=== PATIENT | male | born 1950 | race Caucasian/White ===

== ENCOUNTER 2019-09-15 20:13 | Inpatient (IN) | payer MEDICARE, SELFPAY ==
[2019-09-15] VITALS (7 sets, daily range): BP systolic 93–139; BP diastolic 43–91; PULSE 64–117; RESP 16–24; O2SAT 90–99
--- NOTE | ~2019-09-15 | XR_ITS ---
EXAMINATION: XR chest ET placement DATE: 09/15/2019 20:59 INDICATION: Endotracheal tube advancement TECHNIQUE: frontal view of the chest was obtained. COMPARISON: Chest radiograph dated 09/15/2019 at 8:37 PM FINDINGS: Endotracheal tube tip 3.0 cm above the cno. Nasogastric tube tip in the body of the stomach. Calcified nodule in the right midlung zone consistent with old granulomatous disease. Fine peripheral reticular pattern most prominent at the right apex consistent with ascites pattern interstitial lung disease superimposed over emphysema which is better appreciated on CT dated 02/18/2019. No new airspa ce opacities, pulmonary edema, pleural effusion or pneumothorax.. The cardiomediastinal silhouette is normal. IMPRESSION: 1. Emphysema and mild NSIP pattern chronic interstitial lung disease. Reviewed, dictated and finalized at location A.
--- NOTE | ~2019-09-15 | XR_ITS ---
EXAMINATION: XR fluoroscopy <1hr DATE: 09/20/2019 12:26 INDICATION: Heart pump placement. TECHNIQUE: 38 intraoperative fluoroscopic views of the chest were obtained. I was not present. Fluoro scopy exposure time was 17 seconds. COMPARISON: Chest CT 02/18/2019 FINDINGS: The Impella device tip is in the left ventricle. IMPRESSION: 1. Impella device tip in the left ventricle. Reviewed, dictated and finalized at location A.
--- NOTE | ~2019-09-15 | XR_ITS ---
EXAMINATION: XR chest ET placement DATE: 09/15/2019 20:45 INDICATION: Endotracheal tube advancement. TECHNIQUE: frontal view of the chest was obtained. COMPARISON: Chest radiograph dated 09/15/2019 at 8:32 PM FINDINGS: Endotracheal tube tip 6.5 cm above the con. Nasogastric tube tip in the body of the stomach. Calci fied nodules in the right midlung zone consistent with old granulomatous disease. Fine peripheral ret icular pattern in the right upper lung zone. No other airspace opacities, pleural effusion or pneumot horax. The cardiomediastinal silhouette is normal. IMPRESSION: 1. The tracheal tube tip 6.5 cm above the con. Consider advancement by 4 cm. 2. Emphysema and NSIP pattern chronic interstitial lung disease better appreciated on prior CT. Reviewed, dictated and finalized at location A. IMPRESSION: 1. The tracheal tube tip 6.5 cm above the con. Consider advancement by 4 cm. 2. Emphysema and NSIP pattern chronic interstitial lung disease better apprecia avel on prior CT.
--- NOTE | ~2019-09-15 | XR_ITS ---
EXAMINATION: XR chest ET placement DATE: 09/15/2019 20:44 INDICATION: Cardiac arrest. Endotracheal tube placement. TECHNIQUE: frontal view of the chest was obtained. COMPARISON: Chest radiograph and CT dated 02/18/2019 FINDINGS: Endotracheal tube tip at the thoracic inlet. Chronic fine interstitial pattern at the periphery of th e right apex consistent with an XIP pattern chronic interstitial lung disease better appreciated on p rior CT. There is also emphysema which is better appreciated on prior CT. Portions of the lung bases and lateral right lung are excluded from the [id number]. Cardiomediastinal silhouette is normal. IMPRESSION: 1. Endotracheal tube tip at the thoracic inlet but per discussion with Dr. Trevizo has been subsequen tly advanced. 2. Emphysema and NSIP pattern chronic interstitial lung disease. Reviewed, dictated and finalized at location A. IMPRESSION: 1. Endotracheal tube tip at the thoracic inlet but per discussion with Dr. Cruz acosta has been subsequently advanced. 2. Emphysema and NSIP pattern chronic interstitial lung disease.
--- NOTE | ~2019-09-15 | CT_ITS ---
EXAMINATION: CT brain wo con DATE: 09/15/2019 21:21 INDICATION: Altered mental status. TECHNIQUE: Computed tomography (CT) of the head was performed without intravenous contrast. Sagittal and coronal reconstructions were performed. The mA was adjusted according to patient size. Iterative reconstruction technique was employed. The dose-length product was 605.33 mGy-cm. COMPARISON: head CT dated 05/19/2013 FINDINGS: Small old infarct in the right cerebellar hemisphere. Small old left cerebellar infarct which is new since the prior study. No acute intracranial hemorrhage, acute infarction or abnormal extra axial flu id collection. There is mild to moderate scattered white matter hypoattenuation consistent with chron ic small vessel ischemic disease. Symmetric prominence of the sulci consistent with mild age-appropri ate diffuse cerebral volume loss. Ventricles are normal and symmetric. No mass/mass effect. Changes o f right intraocular lens replacement. Mild mucosal thickening at the bilateral frontal, ethmoid and m axillary sinuses. The orbits and mastoid air cells are normal. Intracranial calcified cerebral athero sclerosis is noted. IMPRESSION: 1. No acute intracranial process. 2. 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 3. Age-related changes including mild diffuse volume loss and mild to moderate scattered white matter hypoattenuation consistent with chronic small vessel ischemic disease. Reviewed, dictated and finalized at location A. IMPRESSION: 1. No acute intracranial process. 2. 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 3. Age-related changes including mild diffuse volume loss and mild to moderate scattered white matter hypoattenuation consistent with chronic small vessel isc hemic disease.
--- NOTE | 2019-09-15 20:18 | ECG_ITS ---
Measurements Intervals [place] Rate: 116 P: MT: 0 QRS: 86 QRSD: 198 T: 0 QT: 448 QTc: 623 Interpretive Statements ATRIAL FIBRILLATION WITH RAPID VENTRICULAR RESPONSE RIGHT BUNDLE BRANCH BLOCK EXTENSIVE ANTERIOR INFARCT, AGE INDETERMINATE BASELINE WANDER- I, III ABNORMAL ECG Electronically Signed On 09-16-2019 7:25:37 CDT by Marshall Hill D.O.
--- NOTE | 2019-09-15 20:21 | ED.CPR ---
HPI - CPR General Chief Complaint: Cardiac Arrest/CPR Stated Complaint: cardiac arrest Time Seen by Provider: 09/15/19 20:17 Source: RN notes reviewed History of Present Illness HPI narrative: Patient presents emergency department from home in cardiac arrest. History is per EMS the patient been complaining of left shoulder and arm pain throughout the day today got up to mother grass have been found sitting in his chair unresponsive to daughter when she was at home that time EMS was called and EMS initially arrived the patient was unresponsive with agonal respirations but did have a pulse and lost pulse and transport he initially had 2 episodes of V. fib that were shocked patient was given amiodarone and 4 rounds of epinephrine with PEA but no return of pulse. Patient was transported the ER for further evaluation the patient does have a known history of diabetes and cardiac history Related Data Home Medications Medication Instructions Recorded Confirmed atorvastatin 40 mg PO DAILY 02/18/19 02/18/19 benazepril 40 mg PO DAILY 02/18/19 02/18/19 buspirone 10 mg PO BID 02/18/19 02/18/19 carvedilol 25 mg PO BID 02/18/19 02/18/19 citalopram 40 mg DAILY 02/18/19 02/19/19 metformin 500 mg PO DAILY 02/18/19 02/18/19 acetaminophen 325 mg capsule 325 mg PO Q6H PRN 03/07/19 alprazolam 0.5 mg tablet 0.5 mg PO BID 03/07/19 atorvastatin 40 mg tablet 40 mg PO DAILY 03/07/19 benazepril 40 mg tablet 40 mg PO DAILY 03/07/19 buspirone 10 mg tablet 10 mg PO BID 03/07/19 carvedilol 25 mg tablet 25 mg PO Q12H 03/07/19 citalopram 40 mg tablet 40 mg PO DAILY tablet 03/07/19 metformin 500 mg tablet 500 mg PO BID 03/07/19 prednisone 10 mg tablet 10 mg PO DAILY 03/07/19 ropinirole 1 mg tablet 1 mg PO DAILY tablet 03/07/19 Allergies Allergy/AdvReac Type Severity Reaction Status Date / Time iodine Allergy Unknown none Verified 05/27/19 09:51 Penicillins Allergy Unknown rash Verified 05/27/19 09:51 shellfish derived Allergy Unknown RASH Unverified 05/27/19 09:51 Review of Systems Review of Systems: ROS unobtainable: Yes unobtainable due to endotracheal tube and unobtainable due to mental status PMFSH Past Medical History Medical History Asthma Atrial fibrillation He has not had any episodes since he was in his 30s Basal cell carcinoma Resected from face 2014 Cataract Maturing left cataract Combined systolic and diastolic cardiac dysfunction Last echocardiogram March 2013 with left atrial enlargement, mild left ventricular enlargement, mild global hypokinesis of left ventricle with EF of 45%, diastolic dysfunction, trace tricuspid and mitral regurgitation COPD (chronic obstructive pulmonary disease) Depression Prior suicide attempt 2013 Diverticulosis Colonoscopy March 2018 Dr. Srivastava Essential hypertension GERD with apnea Herniated lumbar intervertebral disc Internal hemorrhoids Obstructive sleep apnea Recommended CPAP of 6 however patient is not adherence to CPAP therapy Peripheral neuropathy PTSD (post-traumatic stress disorder) Due to service in [place] Superficial vein thrombosis TIA (transient ischemic attack) March 2013 without residual deficits Type 2 diabetes mellitus Surgical History Surgical History H/O inguinal hernia repair 1979 History of cataract surgery Right cataract Hx of cardiac catheterization 2006 not requiring intervention Hx of tonsillectomy Family History Family History Mother Family history of osteoporosis Family history of dementia, Onset Age: 86 Father Family history of chronic obstructive pulmonary disease Family history of emphysema, Onset Age: 59 Sibling Family history of chronic obstructive pulmonary disease, Onset Age: 84 Sibling Cerebrovascular accident Father Asthma Sibling
[2019-09-15 20:37] LABS: Basophils Absolute Auto 0.2 K/mm3 (0.0-0.1); Basophils Percent Auto 0.8 % (0.2-1.2); Eosinophils Absolute Auto 0.2 K/mm3 (0-0.3); Eosinophils Percent Auto 0.9 % (0-4.4); Immature Granulocyte Absolute 1.12 K/mm3 (0.00-0.031); Immature Granulocyte Percent A 6.3 % (0-0.5); Lymphocytes Percent Auto 25.4 % (18.3-44.2); Mean Corpuscular Hemoglobin 31.4 pg (26-34); Mean Platelet Volume 10.2 fl (7.4-10.4); Monocytes Absolute Auto 0.9 K/mm3 (0.1-0.6); Neutrophils Absolute Auto 10.9 K/mm3 (1.3-6.7); Neutrophils Percent Auto 61.6 % (45.5-73.1); Nucleated Red Blood Cells Perc 0.2 % (0.0-0.2); Platelet Count Result 186 k/mm3 (150-375); Red Cell Distribution Width 12.7 % (11.5-14.5); White Blood Count 17.7 K/mm3 (4.5-10.0)
--- NOTE | 2019-09-15 20:41 | ECG_ITS ---
Measurements Intervals [place] Rate: 85 P: 265 VA: 144 QRS: 64 QRSD: 113 T: 89 QT: 374 QTc: 446 Interpretive Statements SINUS RHYTHM FREQUENT VENTRICULAR PREMATURE COMPLEXES INTRAVENTRICULAR CONDUCTION DELAY LOW QRS VOLTAGE IN PRECORDIAL LEADS ANTEROSEPTAL ST ELEVATION MYOCARDIAL INFARCT- ACUTE BASELINE ARTIFACT- V4-V6 ABNORMAL ECG Electronically Signed On 09-16-2019 7:27:24 CDT by Marshall Hill D.O.
[2019-09-15 20:52] LABS: Albumin Level 3.7 g/dL (3.5-5.1)
[2019-09-15 20:53] LABS: Alkaline Phosphatase 110 U/L (38-126); Aspartate Amino Transferase 152 U/L (17-59); Bilirubin,Total 0.7 mg/dL (0.2-1.3); Blood Urea Nitrogen 25 mg/dL (9-20); Calcium 8.2 mg/dL (8.4-10.2); Carbon Dioxide 19 mmol/L (22-30); Chloride 100 mmol/L (98-107); Estimated CRCL calculation 58 ml/min; Estimated Glomerular Filt Rate 50; Glucose 248 mg/dL (75-110); Potassium 3.3 mmol/L (3.4-5.0); Sodium 136 mmol/L (137-145)
[2019-09-15 20:55] LABS: Lactic Acid Reflex 7.2 mmol/L (0.7-2.1)
[2019-09-15 20:58] LABS: Alveolar/Arterial O2 Gradient 176.7 mmHg; Base Excess ABG -11.2 mEq/l (+/-2.0); Carboxyhemoglobin 0.9 % THb (0-2.0); Fractional Inspired Oxygen 100 %; Methemoglobin ABG 0.4 %THb (0-1.5); Oxygen Content ABG 22.3 %vol (16.0-22.0); Oxygen Saturation ABG 99.8 % (95.0-100.0); Oxyhemoglobin 98.1 % THb (90.0-100.0); PCO2 ABG 40.3 mmHg (35.0-45.0); PO2 FiO2 Ratio Arterial Blood 4.96 %; Reduced Hemoglobin 0.6 %THb (0-5.0); Total Hemoglobin 15.2 g/dL (12.0-18.0)
[2019-09-15 20:59] LABS: Alanine Aminotransferase 111 U/L (4-50)
[2019-09-15 21:00] LABS: Arterial Blood Gas PEEP 5 cmH2O; Arterial Blood Gas Tidal Volume 400 ml; Arterial Blood Gas Vent Mode CMV; Arterial Blood Gas Ventilator rate 20 /MIN; Device VENTILATOR; Modified Allen's Test Pass; Site Drawn LEFT RADIAL; pH ABG 7.217 (7.350-7.450)
[2019-09-15 21:12] LABS: Magnesium 2.4 mg/dL (1.6-2.3)
[2019-09-15 21:16] LABS: Add Urine Microscopic? YES; Appearance Urine Clear (Clear); Bacteria Urine Trace /hpf; Bilirubin Urine Negative (Negative); Blood Urine 1+ (Negative); Color Urine Yellow (Yellow); Glucose Urine UA 1+ mg/dL (Negative); Ketones Urine Trace mg/dL (Negative); Leukocyte Esterase Ur Negative LEU/UL (Negative); Mucus Urine Rare /lpf; Nitrate Urine Negative (Negative); Protein Urine 2+ mg/dL (Negative); RBC Urine 0-2 /hpf (0-2); Specific Grav Ur 1.017 (1.001-1.035); Squamous Epithelial Cell Urine Rare /hpf (Few); Urobilinogen Urine Negative mg/dL (<2.0); WBC Urine 0-3 /hpf
[2019-09-15] MEDS: ASPIRIN 600 MG SUPPOSITORY RECTAL (21:41)
--- NOTE | 2019-09-15 21:43 | PM.IMHP ---
H&P: HPI History of Present Illness Chief complaint: STEMI Narrative: Date of service 09/15/2019 chief complaint: left arm discomfort; Brought by EMS after patient was found unconscious, and had VFib cardiac arrest HPI: Ken Ventura is a 69 year old male with past medical history of CHF with mildly reduced LVEF at 47% from 04/01/2013 echocardiogram, hypertension, type 2 diabetes mellitus, dyslipidemia, COPD. patient apparently had left arm discomfort this evening. EMS was called, and patient was found to be in the VFib arrest. He was resuscitated as per ACLS protocol, and reportedly received 2 shocks EN route to [facility] emergency room. In the ER, his Initial EKG which I personally evaluated showed atrial fibrillation with RVR, intraventricular conduction delay. Subsequent EKG showed sinus rhythm, ST elevation in leads V1 to V3, and lateral leads. Cardiac catheterization lab was activated. chest x-ray showed Emphysema and mild NSIP pattern chronic interstitial lung disease. 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 patient's initial labs showed leukocytosis; elevated lactate levels at 7.2; 1st troponin at 1.32. ABG showed pH 7.21, O2 for 96, CO2 40 On supplemental oxygen. Patient was emergently brought to the cardiac catheterization lab which showed Severe CAD- 100% occlusion proximal LAD ( infarct-related vessel) - smaller caliber LAD in the mid-distal segment;diffuse 60-70% stenosis proximal-mid RCA with sluggish blood flow; Severe global LV systolic dysfunction with segmental wall motion abnormality -akinetic mid -distal anterior wall and apex; dilated LV; LVEF about 15-20%; LVEDP severely elevated at 33 mmHg. He underwent complexv PCI-balloon angioplasty and stenting of totally occluded proximal -mid LAD using a 3.25 x 28 mm everolimus eluting stent; insertion and placement of percutaneous left ventricular assist device -Impella CP in the setting of acute PR, complicated by VFib cardiac arrest; multivessel CAD, severe LV systolic dysfunction. He was transferred to the ICU in a guarded condition. [facility] Past Medical History Medical History Asthma Atrial fibrillation He has not had any episodes since he was in his 30s Basal cell carcinoma Resected from face 2014 Cataract Maturing left cataract Combined systolic and diastolic cardiac dysfunction Last echocardiogram March 2013 with left atrial enlargement, mild left ventricular enlargement, mild global hypokinesis of left ventricle with EF of 45%, diastolic dysfunction, trace tricuspid and mitral regurgitation COPD (chronic obstructive pulmonary disease) Depression Prior suicide attempt 2013 Diverticulosis Colonoscopy March 2018 [address] Srivastava Essential hypertension GERD with apnea Herniated lumbar intervertebral disc Internal hemorrhoids Obstructive sleep apnea Recommended CPAP of 6 however patient is not adherence to CPAP therapy Peripheral neuropathy PTSD (post-traumatic stress disorder) Due to service in [place] Superficial vein thrombosis TIA (transient ischemic attack) March 2013 without residual deficits Type 2 diabetes mellitus Surgical History Surgical History H/O inguinal hernia repair 1979 History of cataract surgery Right cataract Hx of cardiac catheterization 2006 not requiring intervention Hx of tonsillectomy Family History Family History Mother Family history of osteoporosis Family history of dementia, Onset Age: 86 Father Family history of chronic obstructive pulmonary disease Family history of emphysema, Onset Age: 59 Sibling Family history of chronic obstructive pulmonary disease, Onset Age: 84 Sibling Cerebrovascular accident
--- NOTE | 2019-09-15 21:46 | WPDCARDPROC ---
Cardiac Cath Procedure Note Date of procedure:: 09/15/19 Performing physician:: Zeus Segura MD Indication:: Acute coronary syndrome - Anterolateral ST elevation DC Procedure Procedure note:: CARDIAC CATHETERIZATION AND PERCUTANEOUS CORONARY INTERVENTION REPORT DATE OF PROCEDURE: 09/15/2019 INDICATION FOR PROCEDURE: Acute coronary syndrome -anteroseptal ST-elevation DC; VFib cardiac arrest in the setting of DC BRIEF CLINICAL HISTORY: 69-year-old male with past medical history of CHF with mildly reduced ejection fraction ( LVEF 47% from 04/01/2013 echocardiogram), hypertension, type 2 diabetes mellitus, asthma, dyslipidemia. Patient was brought to [facility] via EMS after he had left arm discomfort followed by ventricular fibrillation which required CPR as per ACLS protocol including 2 shocks. In the ER, patient's initial EKG showed atrial fibrillation, subsequent EKG showed sinus rhythm with ST elevation in the anteroseptal leads. He was intubated in the emergency room. Patient was given aspirin per rectal. He had CT scan of the head which did not reveal any acute intracranial bleed. Cardiac catheterization lab was activated for primary PCI. Patient has history of questionable dye allergy. He was given diphenhydramine 25 mg IV and Solu-Medrol 125 mg IV in the salvage laborer. PROCEDURES PERFORMED: 1. Emergent left heart catheterization- Selective left and right coronary angiogram; left ventriculogram and hemodynamic assessment 2. Percutaneous coronary intervention- a) balloon angioplasty and stenting of totally occluded proximal LAD using 3.25 x 28 mm everolimus eluting stent; b) insertion and placement of percutaneous left ventricular assist device -Impella for hemodynamic support in the setting of DC complicated by VFib arrest, multivessel disease and severe LV systolic dysfunction (CPT 47368) 3. Selective right common femoral angiogram and deployment of Angio-Seal hemostatic device 4. Moderate sedation-CPT code 44976 MODERATE SEDATION: Diphenhydramine 50 mg IV. Start time 2204 , Stop time 2336 ; Total [id number] time 92 minutes; Alberto Pereira RN was trained observer for moderate sedation. ACCESS SITE: Right common femoral artery PROCEDURE NOTE: Patient was emergently brought to catheterization lab and prepped and draped in a usual sterile manner. After local anesthesia with lidocaine, right common femoral artery access was taken with micropuncture needle followed by insertion of a 6 English sheath. Selective left and right coronary angiogram was performed using 6 English 3.5 CLS guide catheter and JR4 catheters respectively. Orthogonal views were taken. After completion of PCI, a 5 English pigtail catheter was advanced in the LV cavity and was flushed with normal saline. LV pressure measurement was performed. After this, left ventriculogram was performed. The catheter was flushed again, and gradient across the aortic valve was measured on the pullback of the catheter. Selective right common femoral angiogram was performed after PCI followed by successful deployment of Angio-Seal vascular closure device. Patient tolerated procedure well without any immediate procedure related complications. FINDINGS: LEFT MAIN CORONARY: the left main coronary artery is a large caliber vessel, minimal irregularities, no significant focal stenosis. The vessel bifurcates into LAD and left circumflex branches. LEFT ANTERIOR DESCENDING ARTERY: The LAD is a medium-sized vessel in the proximal most segment; 100% occlusion is seen in the lower part of the proximal segment at the origin of the diagonal branch. There was TRAVIS 0 flow prior to the intervention. After a complex PCI, the vessel becomes small diminutive vessel in the mid-distal segment. Diagonal branch is a medium-sized vessel. LEFT CIRCUMFLEX ARTERY: The left circumflex artery is a medium to large size vessel, essentially continues as OM branch. There is mild disease in the
--- NOTE | 2019-09-15 21:51 | PC.NURSE ---
Pt taken to medical laboratory technician after 4000 units heparin and 600mg rectal aspirin given
--- NOTE | 2019-09-15 22:00 | PC.NURSE ---
Pt brought in by EMS at 2010 with ACLS in progress. CPR starting at approx 1955 by family per report. Pt had been having chest pains for a few days prior to his cardiac arrest. Pt was intubated in the field tube size 7.5, 23cm to the teeth. Tube was later advanced a total of 6cm per MD order after xrays to check placement. Briefly achieved ROSC at 2015 with compressions briefly restarted at 2023 with pulse regained at 2025. A total of 2 amps of EPI were given in the ER as well as 3L of IVF. Reported 4 rounds of EPI and 300 amiodarone given in the field as well as 2 shocks. OG and iverson placed. Per EKG results STEMI was activated at 2049. Cath team arrived at 2139. 4000units of IV heparin given as well as 600mg of rectal aspirin per dr. mendez verbal order. Pt was then taken to catheter finisher and inspector with belongings, IVF bag 3 running, and monitor.
--- NOTE | 2019-09-15 22:16 | PC.NURSE ---
report given to Denia in ICU, chart tubed to unit.
[2019-09-15 23:36] LABS: Reflex Lactic Acid Yes or No Add Lactic
[2019-09-16] VITALS (20 sets, daily range): BP systolic 63–139; BP diastolic 18–96; PULSE 60–108; RESP 21–36; TEMP 35.8–38.1; O2SAT 88–100
--- NOTE | 2019-09-16 | ECHOL_ITS ---
Patient Info Name: Ken Ventura Age: 69 years : 1950 Gender: Male Ht: 72 in Wt: 253 lbs BSA: 2.45 m2 HR: 60 bpm BP: 97 / 61 mmHg Heart Rhythm: Sinus Rhythm Technical Quality: Poor Exam Date: 09/16/2019 1:42 AM Exam Location: [facility] Card Pulmonary Patient Status: Inpatient Admit Date: 09/15/2019 Staff Ordering Physician: Zeus Segura MD Jewelry Mechanic: Tia Liriano RDCS Attending Provider: Zeus Segura MD Exam Type: CA echo limited Study Info Indications - IMPELLA PLACEMENT Limited two-dimensional transthoracic echocardiogram is performed. Reason for Poor Study: poor echocardiographic windows Summary 1. Limited study done to visualize placement of Impella ventricular assist catheter. 2. The study was of such extremely poor quality and I was unable to visualize the Impella catheter. Left Ventricle Left ventricular chamber dimension is not well visualized. Right Ventricle Right ventricular chamber dimension is not well visualized. Left Atria Left atrial chamber dimension is normal. Right Atria Right atrial chamber dimension is not well visualized. Aortic Valve The aortic valve is not well visualized. Pulmonic Valve The pulmonic valve is not well visualized. Mitral Valve The mitral valve has normal leaflets. Tricuspid Valve The tricuspid valve leaflets are not well visualized. Pericardium/Pleural The pericardium appears normal. Aorta The aortic root size at the sinus of Valsalva is normal. Report Signatures
[2019-09-16 00:53] LABS: Lactic Acid 2.9 mmol/L (0.7-2.1)
[2019-09-16 00:57] LABS: Hematocrit 42.1 % (42.0-52.0); Hemoglobin 14.2 g/dL (14.0-18.0); Mean Corpuscular HGB Conc 33.7 g/dl (32-36); Mean Corpuscular Hemoglobin 31.8 pg (26-34); Mean Corpuscular Volume 94.4 fl (80-100); Mean Platelet Volume 10.2 fl (7.4-10.4); Platelet Count Result 232 k/mm3 (150-375); Red Blood Count 4.46 M/mm3 (4.6-6.20); Red Cell Distribution Width 12.8 % (11.5-14.5); White Blood Count 22.5 K/mm3 (4.5-10.0)
[2019-09-16] MEDS: SODIUM CHLORIDE 0.9% IV 1,000 ML 999 ML (01:00)
[2019-09-16 01:34] LABS: Alveolar/Arterial O2 Gradient 128.2 mmHg; Base Excess ABG -6.2 mEq/l (+/-2.0); Carboxyhemoglobin 0.3 % THb (0-2.0); Fractional Inspired Oxygen 50 %; HCO3 ABG 16.3 mEq/l (22.0-26.0); Methemoglobin ABG 0.4 %THb (0-1.5); Oxygen Content ABG 18.1 %vol (16.0-22.0); Oxygen Saturation ABG 99.4 % (95.0-100.0); Oxyhemoglobin 97.6 % THb (90.0-100.0); PO2 ABG 200.2 mmHg (80.0-100.0); Reduced Hemoglobin 1.7 %THb (0-5.0); Total Hemoglobin 12.9 g/dL (12.0-18.0); pH ABG 7.433 (7.350-7.450)
[2019-09-16 01:35] LABS: Device VENTILATOR; Modified Allen's Test Pass; Site Drawn LEFT RADIAL
[2019-09-16 01:35] LABS: Cholesterol 87 mg/dL (0-200); HDL Direct 23 mg/dL; Triglycerides 89 mg/dL (<150)
[2019-09-16 01:36] LABS: Arterial Blood Gas PEEP 5 cmH2O; Arterial Blood Gas Tidal Volume 400 ml; Arterial Blood Gas Vent Mode CMV; Arterial Blood Gas Ventilator rate 20 /MIN
[2019-09-16 01:36] LABS: INR 3.6; Partial Thromboplastin Time 127.4 SECONDS (22.3-36.8); Prothrombin Time 35.6 Seconds (11.1-14.7)
[2019-09-16 01:47] LABS: LDL Cholesterol Direct 54 mg/dL
[2019-09-16] MEDS: SODIUM CHLORIDE 0.9% IV 1,000 ML 40 ML IV CONT (02:15)
[2019-09-16 02:40] LABS: Glucose Point of Care 198 (65-105)
[2019-09-16] MEDS: PROPOFOL IV EMULSION 100 ML 3.5 MG IV CONT (02:55)
--- NOTE | 2019-09-16 02:59 | PM.IMCN ---
Assessment and Plan Assessment and plan (1) Cardiopulmonary arrest: Code(s): I46.9 - Cardiac arrest, cause unspecified Status: Acute (2) ST elevation (STEMI) myocardial infarction: Qualifiers: Involved coronary artery: LAD coronary artery Qualified Code(s): I21.02 - ST elevation (STEMI) myocardial infarction involving left anterior descending coronary artery Code(s): I21.3 - ST elevation (STEMI) myocardial infarction of unspecified site Status: Acute Assessment and Plan: The patient . Additional Plan 95 minutes spent in critical care activities in exclusion of procedures. Due to a high probability of clinically significant, life threatening deterioration, the patient required my highest level of preparedness to intervene emergently and I personally spent this critical care time directly and personally managing the patient. This critical care time included obtaining a history; examining the patient; pulse oximetry; ordering and review of studies; arranging urgent treatment with development of a management plan; evaluation of patient's response to treatment; frequent reassessment; and discussions with other providers. It was exclusive of separately billable procedures and treating other patients and teaching time. Please see Assessment and Plan section and the rest of the note for further information on patient assessment and treatment. HPI Data of Consult Consult date: 09/16/19 Requesting Physician: Dr. Velázquez Primary Care Provider: Nicolás Arguelles MD Consult Narrative Narrative: Date and time of patient contact: 09/16/2019 at 3:20 a.m. Ken Ventura is a 69 year old male with a past medical history of COPD, diabetes mellitus, atrial fibrillation and combined systolic and diastolic congestive heart failure who presented to the ER in cardiac arrest. The patient had been mowing his lawn and was having some shoulder pain. The daughter of his significant other that lived at his house went to check on him and found him sitting up in a chair with agonal respirations. The patient did initially have a pulse but was lost in route to the hospital. The patient had 2 episodes of VFib that were shocked. The patient was given amiodarone and 4 rounds of epinephrine with PEA but no return of pulse. The patient arrived to the ER with a Ronald device in place and intubated. On pulse check the patient was noted to have a pulse with initial EKG demonstrating no evidence of ST elevation. The patient then went into cardiac arrest again and CPR was resumed. The patient received epinephrine and bicarb in had a return of pulse again. Repeat EKG demonstrated a STEMI. The patient was taken to the engineer geophysical laboratory where complete occlusion of the proximal LAD was found. The patient had stent placed and an Impella device inserted. The patient was hypotensive when he arrived to the ICU and had a large hematoma in his groin. The Impella device was adjusted and the patient's blood pressures improved. The patient was noted to be seizing and the patient was started on low-dose propofol. At that time the intensive his wanted the patient placed on cooling protocol and I was consulted. Subsequently I placed a left femoral line and a right radial art line. The patient's blood pressures were in the 80s over 30's on the art line. Pressor therapy was initiated with Levophed. The Levophed was titrated up to 20 and a 2nd pressor was ordered. Before the 2nd pressor could be hung the patient's Levophed was maxed out at 30. The patient had a brief run of V-tach followed by PEA. A code was called. I was in the ICU at the time the code was called. CPR was started immediately in the patient was already intubated. Respiratory took over respirations with bag-valve mask. The patient received 7 rounds of epinephrine, for amps of bicarb and underwent cardiopulmonary resuscitation for 17 minutes. These efforts patient remained in P
--- NOTE | 2019-09-16 03:00 | ECG_ITS ---
Measurements Intervals [place] Rate: 101 P: 92 [place]: 171 QRS: 82 QRSD: 101 T: 89 QT: 345 QTc: 448 Interpretive Statements SINUS TACHYCARDIA LOW QRS VOLTAGE IN PRECORDIAL LEADS [QRS DEFLECTION < 1.0 mV IN CHEST LEADS] MINIMAL Q WAVES- INFERIOR LEADS ANTERIOR ST ELEVATION MYOCARDIAL INFARCT- PROBABLY RECENT LATERAL INFARCT, AGE INDETERMINATE BASELINE WANDER- II, III, AVR, AVL, AVF ABNORMAL ECG Electronically Signed On 09-16-2019 7:35:16 CDT by Marshall Hill D.O.
--- NOTE | 2019-09-16 03:27 | ADMGEN ---
This patient, Ken Ventura, was admitted to Intensive Care Unit-8 at 0000 on 09/16/2019. Patient/family oriented to hospital policies and general routines including ID bracelet, bed and alarms, visiting hours, pain management, procedures, bathroom and other care routines, personal items, smoking policy, room service/diet, and visiting hours. Valuables list has been completed. Information on how to activate the Rapid Response Team has been discussed. Patient/Family are encouraged to report perceived risks to care and to ask questions if they do not understand what they are told or what they should do.
[2019-09-16] MEDS: NOREPINEPHRINE 8 MG/D5W 250 ML 8 MG/250 ML BAG 9.4 MG IV CONT (04:31)
--- NOTE | 2019-09-16 04:33 | P.PCNBED_ITS ---
Procedures Central Line Placement Left Femoral: Central Line Date: 09/16/19 Central Line Time: 03:30 Performed Emergently - Given emergent patient condition, temporal constraints may have precluded informed consent.: Yes Time Out Performed: Yes Patient Position: supine Patient placed on monitor/pulse ox: Yes Provider Prep: mask, sterile gown, sterile gloves, Max. sterile barrier precautions, cap and hand hygiene Central line prep: Chlorhexidine scrub Ultrasound used for placement: Yes Central line lumen inserted: triple [place]: 7 Length (cm): 16 Depth of Insertion (cm): 15 Post procedure: sutured in place, good blood return, all ports aspirated, flushed, capped, tegaderm, hemostatic disc and aseptic technique maintained throughout procedure Patient tolerated procedure: well Complications: none
--- NOTE | 2019-09-16 04:35 | P.PCNBED_ITS ---
Procedures Arterial Line Arterial Line Date: 09/16/19 Arterial Line Time: 04:00 Perfomed Emergently - Given emergent patient conditions, temporal constraints may have precluded informed consent: Yes Time Out Performed: Yes Patient Position: supine Cloth Shearing Supervisor Prep: sterile gown, sterile gloves, mask and hat Site: right and radial Site Prep: chlorhexidine and sterile drape Technique used: ultrasound-guided Size (Gauge): 20 Length: 4.4 cm Closure/Dressing: suture and other (Coag disc) Patient tolerated procedure: well Complications: none
[2019-09-16 04:54] LABS: Alveolar/Arterial O2 Gradient 143.2 mmHg; Base Excess ABG -15.7 mEq/l (+/-2.0); Carboxyhemoglobin 0.3 % THb (0-2.0); Fractional Inspired Oxygen 40 %; HCO3 ABG 11.7 mEq/l (22.0-26.0); Methemoglobin ABG 0.4 %THb (0-1.5); Oxygen Content ABG 17.6 %vol (16.0-22.0); Oxygen Saturation ABG 96.4 % (95.0-100.0); Oxyhemoglobin 95.1 % THb (90.0-100.0); PO2 ABG 104.1 mmHg (80.0-100.0); Reduced Hemoglobin 4.2 %THb (0-5.0); Total Hemoglobin 13.1 g/dL (12.0-18.0)
[2019-09-16 04:55] LABS: Hematocrit 36.5 % (42.0-52.0); Hemoglobin 12.1 g/dL (14.0-18.0); Mean Corpuscular HGB Conc 33.2 g/dl (32-36); Mean Corpuscular Hemoglobin 31.8 pg (26-34); Mean Corpuscular Volume 96.1 fl (80-100); Mean Platelet Volume 9.9 fl (7.4-10.4); Platelet Count Result 236 k/mm3 (150-375); Red Cell Distribution Width 12.8 % (11.5-14.5); White Blood Count 25.1 K/mm3 (4.5-10.0)
[2019-09-16 04:55] LABS: pH ABG 7.169 (7.350-7.450)
[2019-09-16 04:56] LABS: Device VENTILATOR; Site Drawn ARTLINE
[2019-09-16 04:57] LABS: Arterial Blood Gas PEEP 5 cmH2O; Arterial Blood Gas Vent Mode CMV; Arterial Blood Gas Ventilator rate 20 /MIN
[2019-09-16 04:58] LABS: Arterial Blood Gas Tidal Volume 400 ml
[2019-09-16 05:09] LABS: INR 2.4; Prothrombin Time 25.4 Seconds (11.1-14.7)
[2019-09-16 05:11] LABS: Partial Thromboplastin Time 98.9 SECONDS (22.3-36.8)
[2019-09-16 05:32] LABS: Alanine Aminotransferase 206 U/L (4-50); Albumin Level 2.5 g/dL (3.5-5.1); Alkaline Phosphatase 67 U/L (38-126); Bilirubin,Total 1.6 mg/dL (0.2-1.3); Blood Urea Nitrogen 33 mg/dL (9-20); Calcium 6.8 mg/dL (8.4-10.2); Carbon Dioxide 13 mmol/L (22-30); Chloride 107 mmol/L (98-107); Estimated CRCL calculation 39 ml/min; Estimated Glomerular Filt Rate 31; Glucose 229 mg/dL (75-110); Lactic Acid 8.7 mmol/L (0.7-2.1); Potassium 6.3 mmol/L (3.4-5.0); Sodium 134 mmol/L (137-145); Troponin I > 80.000 ng/mL (0.000-0.034)
[2019-09-16 05:40] LABS: Aspartate Amino Transferase 1064 U/L (17-59)
--- NOTE | 2019-09-16 07:09 | PC.NURSE ---
0030 Impella alarmed low suction, decreased P Flow down to 6 from 8. 0035 Impella alarmed low suction and wrong impella placement, checked patient's groin site and swollen and hematoma had formed at sheath site. Pressure held by Charge nurse, call to general laborer nurses to come back to patient. 0045 call out to [employer] tech Thierry, who is on his to hospital, recommends echo stat for placement check. 0050 call to Thierry Patrick Pollen - Social Platform tech in room turned P-flow down to [address] Segura on impella. manufacturing test technician called in stat.
--- NOTE | 2019-09-16 07:16 | PC.NURSE ---
0030 Call to patient's emergency contact listed Comfort, updated on patient's critical Status and clarify on code status. Comfort is not the next of kin but patient's step daughter and stated to please contact patient's son Jamie Ventura, but unaware of son's contact info. Nurse supervisor newspaper deliveries attempting to contact.
--- NOTE | 2019-09-16 07:20 | PC.NURSE ---
0130 setup technician in room with charge nurse and impella tech. Impella Tech and Dr Segura discussed placement of impella, and stated it was in a safe position but not in correct position. Orders to leave at position and turn p flow down to 1, pipe smoker machine operator will need to discontinue in am. Nurse able to make contact with son Jamie, updated son on patient's critical condition, patient's son does not wish to change code status at this time.
--- NOTE | 2019-09-16 07:24 | PC.NURSE ---
0230 Dr Velázquez updated on patient, patient posturing. Orders to start hypothermia protocol and consult hospitalist. 0240 Dr Goss notified of new consult and need for line placements for hypothermia protocol.
--- NOTE | 2019-09-16 07:28 | PC.NURSE ---
0453 patient had run of vtach with no pulse, CPR started and code blue called. See Code sheet.
[2019-09-16 08:31] LABS: Glucose Point of Care 181 (65-105)
--- NOTE | 2019-09-17 11:01 | PM.DDS ---
Discharge Sum: Prov Provider Primary care physician: Nicolás Arguelles MD Admitting provider: Zeus Segura MD Consults: 09/15/19 Consult to Physician Routine Comment: Consulting Provider: call center consultant/MD group to consult: consult hospitalist team for management of diabetes Reason for consultation: medical management Has provider been notified: No Discharge Sum: Diag Contributing Factors (1) ST elevation (STEMI) myocardial infarction: (2) Cardiopulmonary arrest: Discharge Sum: Summary Date and Time Date of admission: 09/15/19 20:50 Date of : 09/16/19 Time of : 05:10 Summary Details: 69 year old male with past medical history of CHF with mildly reduced LVEF at 47% from 04/01/2013 echocardiogram, hypertension, type 2 diabetes mellitus, dyslipidemia, COPD. Patient apparently had left arm discomfort on the day of admission. EMS was called, and patient was found to be in the VFib arrest. He was resuscitated as per ACLS protocol, and reportedly received 2 shocks EN route to [facility] emergency room. In the ER, his Initial EKG which I personally evaluated showed atrial fibrillation with RVR, intraventricular conduction delay. Subsequent EKG showed sinus rhythm, ST elevation in leads V1 to V3, and lateral leads. Cardiac catheterization lab was activated. chest x-ray showed Emphysema and mild NSIP pattern chronic interstitial lung disease. 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 patient's initial labs showed leukocytosis; elevated lactate levels at 7.2; 1st troponin at 1.32. ABG showed pH 7.21, O2 for 96, CO2 40 On supplemental oxygen. Patient was emergently brought to the cardiac catheterization lab which showed Severe CAD- 100% occlusion proximal LAD ( infarct-related vessel) - smaller caliber LAD in the mid-distal segment;diffuse 60-70% stenosis proximal-mid RCA with sluggish blood flow; Severe global LV systolic dysfunction with segmental wall motion abnormality -akinetic mid -distal anterior wall and apex; dilated LV; LVEF about 15-20%; LVEDP severely elevated at 33 mmHg. He underwent complexv PCI-balloon angioplasty and stenting of totally occluded proximal -mid LAD using a 3.25 x 28 mm everolimus eluting stent; insertion and placement of percutaneous left ventricular assist device -Impella CP in the setting of acute DC, complicated by VFib cardiac arrest; multivessel CAD, severe LV systolic dysfunction. He was transferred to the ICU in a guarded condition. In the ICU, initially Patient was hemodynamically stable, however he was noted to be seizing and the patient was started on low-dose propofol. Patient was managed by critical care physician and in house hospitalist team after transfer from the chemistry laboratory technician. Information is gathered from the review of the note from the in house hospitalist provided. Patient had left femoral line and a right radial art line placed in preparation for the therapeutic hypothermia. The patient's blood pressures were in the 80s over 30's on the art line. Pressor therapy was initiated with Levophed. The patient had a brief run of V-tach followed by PEA. A code was called. CPR was started immediately as per ACLS protocol in the patient was already intubated. Respiratory took over respirations with bag-valve mask. . The patient was reported to have cardiopulmonary resuscitation for 17 minutes. the patient remained in PEA. The patient was pronounced at 5:10 a.m. The patient's son Jamie was notified by nursing staff. Additional Data Attending physician: Zeus Segura MD Was code activated?: Yes Hospice patient?: No
== END 2019-09-16 05:10 | disposition expired | DRG 215 ==
LOC: ANHED 20:53 → ANHICU 21:11
PROVIDERS: Internal Medicine; Admitting Provider Internal Medicine Cardiovascular Disease; Emergency Provider Emergency Medicine; PCP Family Medicine; Visit Provider Internal Medicine Cardiovascular Disease
PROC: 4A023N7 Measurement of Cardiac Sampling and Pressure, Left Heart, Percutaneous Approach (ICD-10-PCS; CPT 93452; principal; 2019-09-15 21:15)
PROC: 02HA3RZ Insertion of Short-term External Heart Assist System into Heart, Percutaneous Approach (ICD-10-PCS; 2019-09-15 21:15)
PROC: 02HA3RZ Insertion of Short-term External Heart Assist System into Heart, Percutaneous Approach (ICD-10-PCS; CPT 33979; 2019-09-15 21:15)
DX: I21.02 ST elevation (STEMI) myocardial infarction involving left anterior descending coronary artery (principal); I50.42 Chronic combined systolic (congestive) and diastolic (congestive) heart failure; I47.2 Ventricular tachycardia; I11.0 Hypertensive heart disease with heart failure; E11.42 Type 2 diabetes mellitus with diabetic polyneuropathy; I48.91 Unspecified atrial fibrillation; J43.9 Emphysema, unspecified; K21.9 Gastro-esophageal reflux disease without esophagitis; G47.33 Obstructive sleep apnea (adult) (pediatric); F43.10 Post-traumatic stress disorder, unspecified; K57.90 Diverticulosis of intestine, part unspecified, without perforation or abscess without bleeding; E78.5 Hyperlipidemia, unspecified; Z66 Do not resuscitate; Z86.718 Personal history of other venous thrombosis and embolism; Z86.73 Personal history of transient ischemic attack (TIA), and cerebral infarction without residual deficits; Z85.828 Personal history of other malignant neoplasm of skin; Z87.891 Personal history of nicotine dependence; Z98.41 Cataract extraction status, right eye
CPT/HCPCS: 33990; 36415; 36600; 70450; 76000; 80053; 80061; 81001; 82375; 82805; 82948; 83050; 83605; 83735; 84484; 85025; 85027; 85610; 85730; 87040; 92950; 93005; 93308; 93458; 94002; 96361; 96365; 96375; 99291; A9270; C1725; C1751; C1769; C1874; C1887; C1894; C9606; J0171; J0583; J1200; J1644; J2704; J2930; J3480; J7030; J7040; J7060; J7120